=== PATIENT | male | born 1940 | race Caucasian/White ===

== ENCOUNTER 2021-07-23 07:37 | Emergency (ER) | payer OTHER ==
[~2021-07-23] VITALS: Ht 167.6 cm; Wt 61.2 kg
[2021-07-23] MEDS ORDERED: LOTREL 5-20 MG1 CAP PO (07:57)
[2021-07-23] MEDS ORDERED: PROSCAR5 MG PO (07:57)
[2021-07-23] MEDS ORDERED: CARAFATE1 GM PO (07:57)
[2021-07-23] MEDS ORDERED: PROTONIX40 M1 PO (07:58)
[2021-07-23] MEDS ORDERED: LIPITOR40 M1 PO (07:58)
== END 2021-07-23 18:24 | disposition home or self-care (01) ==
LOC: ER 07:37
DX: K76.9 Liver disease, unspecified (principal); K80.20 Calculus of gallbladder without cholecystitis without obstruction; N28.1 Cyst of kidney, acquired; R10.31 Right lower quadrant pain; Z03.818 Encounter for observation for suspected exposure to other biological agents ruled out